=== PATIENT | male | born 1950 | race Caucasian/White ===

== ENCOUNTER → 2022-01-07 | Outpatient (CLI) | payer MEDICARE, OTHER ==
[~2022-01-07] MED LIST: COMBIVENT RESPIM4 GM INH; CYCLOBENZAPRINE10 MG PO; ELIQUIS2.5 MG PO; ENDOCET 10-3251 EACH PO; GABAPENTIN600 MG PO; SEROQUEL100 MG PO; TACROLIMUS1 MG PO; ZOFRAN 4 MG TAB4 MG PO
[2022-01-07 11:53] LABS: BUN/CREATININE RATIO 19 (0-10)
== END ==
LOC: LAB 10:53
PROVIDERS: Orthopaedic Surgery
DX: Z01.812 Encounter for preprocedural laboratory examination (principal); M16.12 Unilateral primary osteoarthritis, left hip
CPT/HCPCS: 36415; 80048; 86850; 86900; 86901

== ENCOUNTER 2022-01-08 06:11 | Day surgery (SDC) | payer MEDICARE, OTHER ==
[~2022-01-08] VITALS: Ht 175.3 cm; Wt 75.3 kg
[~2022-01-08 06:11] MED LIST changes: -CYCLOBENZAPRINE10 MG PO; -ELIQUIS2.5 MG PO; -ENDOCET 10-3251 EACH PO; -SEROQUEL100 MG PO; -TACROLIMUS1 MG PO; -ZOFRAN 4 MG TAB4 MG PO
[2022-01-08] MEDS ORDERED: CYCLOBENZAPRINE10 MG PO (10:26)
[2022-01-08] MEDS ORDERED: ELIQUIS2.5 MG PO (10:26)
[2022-01-08] MEDS ORDERED: ZOFRAN 4 MG TAB4 MG PO (10:26)
[2022-01-08] MEDS ORDERED: ENDOCET 10-3251 EACH PO (10:26)
[2022-01-08] MEDS ORDERED: SEROQUEL100 MG PO (14:25)
[2022-01-08] MEDS ORDERED: TACROLIMUS1 MG PO (14:31)
[2022-01-09 05:22] LABS: HEMOGLOBIN 9.5 gm/dl (14.0-17.5); RED BLOOD COUNT 2.97 M/UL (4.20-5.50); WHITE BLOOD COUNT 14.9 K/UL (4.5-11.0)
[2022-01-10 04:24] LABS: HEMOGLOBIN 8.8 gm/dl (14.0-17.5); RED BLOOD COUNT 2.73 M/UL (4.20-5.50); WHITE BLOOD COUNT 11.8 K/UL (4.5-11.0)
[2022-01-10 04:56] LABS: BUN/CREATININE RATIO 24 (0-10)
--- NOTE | 2022-01-10 09:18 | NUR ---
DR SALDAÑA SAW PT AT BEDSIDE. 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 PRESCRIPTIONS ALREADY AT PHARMACY. JOSÉ LUIS LOVE ON CHART. PT WALKER IN ROOM TO TAKE HOME. PT FOLLOW WITH [facility] 01/21 AND PT PRO'S THERAPY FOR 01/16. PT UP WALKING AROUND ROOM WITH WALKER. FAMILY AT BEDSIDE TO TAKE PT HOME. THEY DENIED ANY NEED FOR HOME HEALTH SERVICE. CONTINUE ALL HOME MEDS.
== END 2022-01-10 09:24 | disposition home or self-care (01) ==
LOC: CCU 06:11 → OR 06:11 → CCU 13:24 → OR 01-10 09:24
PROVIDERS: Orthopaedic Surgery
DX: M16.11 Unilateral primary osteoarthritis, right hip (principal); I10 Essential (primary) hypertension; J44.9 Chronic obstructive pulmonary disease, unspecified; N17.9 Acute kidney failure, unspecified; F17.290 Nicotine dependence, other tobacco product, uncomplicated; Z79.899 Other long term (current) drug therapy
CPT/HCPCS: 36415; 73501; 73502; 76000; 80048; 85027; 97116-GP-CQ; 97162; 97165; 97530; C1776; J0690; J1100; J1170; J1885; J2001; J2270; J2274; J2405; J2704; J3010; J3370; J7050; J7507